=== PATIENT | female | born 1955 | race African-American/Black ===

== ENCOUNTER 2016-07-04 02:43 | Emergency (ER) | payer MEDICAID, OTHER ==
[~2016-07-04] VITALS: Ht 160 cm; Wt 63.5 kg
[~2016-07-04 02:43] MED LIST: ALBUTEROL2.5 MG/3 M HHN; AMOXICILLIN500 M1 PO; AMOXICILLIN500 MG ORAL; AMOXICILLIN500 MG PO; ASPIRIN81 MG ORAL; ATARAX25 MG ORAL; AUGMENTIN 875-1 EAC1 ORAL; BENADRYL25 M3 PO; BENADRYL25 MG PO; BENADRYL50 MG ORAL; BENADRYL50 MG PO; DIPHENHYDRAMINE25 M1 ORAL; HYDROCORTISONE28 G2 TP; HYDROCORTISONE28 G5 TP; KEFLEX500 MG ORAL; KEFLEX500 MG PO; NASONEX17 GM NASAL; OXYCONTIN10 MG PO; PERMETHRIN60 GM TOPIC; PHENERGAN/CODE120 ML PO; PREDNISONE50 MG ORAL; SEROQUEL25 MG PO; TYLENOL325 MG ORAL; [UNRECOGNIZED DRUG - REMARK]; [UNRECOGNIZED DRUG - REMARK]
[2016-07-04] MEDS ORDERED: UNOBMED (02:55)
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
[2016-07-04] MEDS ORDERED: ROBAXIN-750750 MG PO (04:03)
[2016-07-04] MEDS ORDERED: IBUPROFEN600 MG ORAL (04:03)
[2016-07-04 04:18] VITALS: BP 125/84
--- NOTE | 2016-07-11 14:57 | Diagnostic Imaging Report ---
Indications: Right elbow pain Technique: 3 views of the right although Findings: Comparison: None No fracture, dislocation, lytic destruction, periosteal reaction, joint space widening or effusion, surrounding soft tissue abnormality, or other acute changes demonstrated. No deformity, alignment abnormality, arthritic change, soft tissue calcification, or other chronic changes demonstrated. IMPRESSION: Negative elbow knee series.
[2016-09-11] MEDS ORDERED: IBUPROFEN600 MG ORAL (06:19)
[2016-09-11] MEDS ORDERED: NEXAFED30 MG ORAL (06:19)
== END 2016-07-04 04:20 | disposition home or self-care (01) ==
LOC: EMR 03:29
DX: S50.01XA Contusion of right elbow, initial encounter (principal); J45.909 Unspecified asthma, uncomplicated; V43.62XA Car passenger injured in collision with other type car in traffic accident, initial encounter; Y92.410 Unspecified street and highway as the place of occurrence of the external cause; Y99.8 Other external cause status
CPT/HCPCS: 99284

== ENCOUNTER → 2016-09-11 | Emergency (ER) | payer OTHER ==
[~2016-09-11] VITALS: Ht 162.6 cm; Wt 65.8 kg
[~2016-09-11] MED LIST changes: +DiphenhydrAMINE 50mg/ml Inj ONE; +IBUPROFEN600 MG ORAL; +Ketorolac 30mg Inj ONE; +Metoclopramide 10mg/2ml Inj ONE; +NEXAFED30 MG ORAL; +ROBAXIN-750750 MG PO; +UNOBMED
--- NOTE | 2016-09-11 06:19 | Emergency Room Report ---
History of Present Illness General Chief Complaint: Nausea, Vomiting, and Diarrhea Source: Patient Present Illness HPI This is a 60-year-old female who presents with chief complaint of headache, congestion, sore throat, ear pain. Onset for last 3 days. She has been here multiple time for the same complaint before. Denies any fever chills. She told the nurse that she had nausea and vomiting but she did not mention it to me here. She said she's been having diarrhea. Denies any other complaint. Allergies: Coded Allergies: No Known Allergies (Unverified , 04/04/12) Patient History Past Medical History: see triage record, old chart reviewed Past Surgical History: none Pertinent Family History: none Social History: Reports: smoking Now: No Immunizations: other Reviewed Nursing Documentation: PMH: Agreed, PSxH: Agreed Nursing Documentation-PMH Hx Cardiac Problems: Yes - HT MURMUR Hx Asthma: Yes Review of Systems Eye: Denies: blurred vision, eye pain ENT: Reports: ear pain, nose congestion, throat pain, Denies: throat swelling Respiratory: Reports: cough, Denies: shortness of breath Cardiovascular: Denies: chest pain, palpitations Gastrointestinal: Reports: diarrhea, nausea, vomiting, Denies: abdominal pain Musculoskeletal: Denies: back pain, joint pain Skin: Denies: rash Neurological: Denies: headache, numbness Endocrine: Denies: increased thirst, increased urine Hematologic/Lymphatic: Denies: easy bruising All Other Systems: negative except mentioned in HPI Physical Exam Vital Signs Date Time Temp Pulse Resp B/P Pulse Ox O2 Delivery O2 Flow Rate FiO2 09/11/16 05:55 97.9 90 16 113/80 96 Room Air vitals normal Sp02 EP Interpretation: reviewed, normal General Appearance: well appearing, no apparent distress, alert Head: normocephalic, atraumatic Eyes: bilateral eye EOMI, bilateral eye PERRL ENT: hearing grossly normal, normal pharynx Neck: full range of motion, supple, no meningismus Respiratory: chest non-tender, lungs clear, normal breath sounds Cardiovascular #1: regular rate, rhythm, no murmur Gastrointestinal: normal bowel sounds, non tender, no mass, no organomegaly, no bruit, non-distended Musculoskeletal: back normal, gait/station normal, normal range of motion Psychiatric: mood/affect normal Skin: warm/dry Medical Decision Making Diagnostic Impression: Primary Impression: Upper respiratory infection Qualified Codes: J06.9 - Acute upper respiratory infection, unspecified; B97.89 - Other viral agents as the cause of diseases classified elsewhere ER Course Patient presents with symptom consistent with a viral infection. I suspect there may be a malingering component to this. She is well appearing. No nausea no vomiting or diarrhea here. We'll discharge home with reassurance. Last Vital Signs Date Time Temp Pulse Resp B/P Pulse Ox O2 Delivery O2 Flow Rate FiO2 09/11/16 05:55 97.9 90 16 113/80 96 Room Air Status: improved Disposition: HOME, SELF-CARE Condition: Stable Scripts Pseudoephedrine Hcl* (NEXAFED*) 30 Mg Tablet 30 MG ORAL Q6H Y for congestion, #20 TAB Prov: YAS HENDRICKSON M.D. 09/11/16 Ibuprofen* (MOTRIN*) 600 Mg Tablet 600 MG ORAL THREE TIMES A DAY, #30 TAB 0 Refills Prov: YAS HENDRICKSON M.D. 09/11/16 Additional Instructions: Followup With your DrNicolás in 7 days. Return if symptom worsen. YAS HENDRICKSON M.D. Sep 11, 2016 06:19
[2016-09-11 06:32] VITALS: BP 117/84
== END | disposition home or self-care (01) ==
LOC: EMR 06:30
DX: J06.9 Acute upper respiratory infection, unspecified (principal); B97.89 Other viral agents as the cause of diseases classified elsewhere; J45.909 Unspecified asthma, uncomplicated; F17.200 Nicotine dependence, unspecified, uncomplicated; R01.1 Cardiac murmur, unspecified
CPT/HCPCS: 99284; J1200; J1885; J2765

== ENCOUNTER 2017-05-14 19:31 | Emergency (ER) | payer OTHER ==
[~2017-05-14] VITALS: Ht 160 cm; Wt 66.2 kg
[~2017-05-14 19:31] MED LIST changes: -DiphenhydrAMINE 50mg/ml Inj ONE; -Ketorolac 30mg Inj ONE; -Metoclopramide 10mg/2ml Inj ONE
[2017-05-14 19:35] VITALS: BP 118/68
[2017-05-14] MEDS ORDERED: NKM (19:40)
[2017-05-14] MEDS ORDERED: TESSALON PERLE100 MG ORAL (20:29)
[2017-05-14 20:49] VITALS: BP 118/68
--- NOTE | 2017-05-15 12:05 | Diagnostic Imaging Report ---
Indication: Cough Comparison: 12/24/15 A single view chest radiograph was obtained. Findings: No definite infiltrate or pulmonary vascular congestion identified. The heart is enlarged. The aorta is mildly enlarged consistent with atherosclerotic vascular disease. The bones are osteopenic. Impression: No acute disease
--- NOTE | 2017-05-16 22:40 | Emergency Room Report ---
History of Present Illness General Chief Complaint: Pain Source: Patient Present Illness HPI 61 yo F no sig pmhx p/w runny nose and congestion x 2 days. denies fever chest pain sob. no sick contacts or recent travel. has been eating/drinking well Allergies: Coded Allergies: No Known Allergies (Unverified , 04/04/12) Patient History Past Medical History: see triage record Past Surgical History: none Pertinent Family History: none Reviewed Nursing Documentation: PMH: Agreed, PSxH: Agreed Nursing Documentation-PMH Past Medical History: No History, Except For Hx Cardiac Problems: Yes - HT MURMUR Hx Asthma: Yes Review of Systems All Other Systems: negative except mentioned in HPI Physical Exam Vital Signs Date Time Temp Pulse Resp B/P (MAP) Pulse Ox O2 Delivery O2 Flow Rate FiO2 05/14/17 19:34 98.8 99 18 118/68 97 Room Air Sp02 EP Interpretation: reviewed, normal General Appearance: normal inspection, well appearing, no apparent distress, alert, GCS 15, non-toxic Head: normocephalic, atraumatic Eyes: bilateral eye normal inspection, bilateral eye PERRL, bilateral eye EOMI ENT: normal ENT inspection, normal pharynx, normal voice, moist mucus membranes Neck: normal inspection, full range of motion, supple Respiratory: normal inspection, lungs clear, normal breath sounds, no respiratory distress, no retraction, no wheezing, speaking full sentences, chest symmetrical Cardiovascular #1: normal inspection, regular rate, rhythm, no edema, normal capillary refill Cardiovascular #2: 2+ radial (R), 2+ radial (L) Gastrointestinal: normal inspection, non tender, soft, non-distended, no guarding Musculoskeletal: normal inspection, back normal, normal range of motion, non- tender Neurologic: normal inspection, alert, oriented x3, responsive, motor strength/ tone normal, sensory intact, normal gait, speech normal Psychiatric: normal inspection, judgement/insight normal, memory normal Skin: normal inspection, normal color, no rash, warm/dry, well hydrated, normal turgor Medical Decision Making Diagnostic Impression: Primary Impression: Viral URI with cough ER Course 61 yo F with runny nose, congestion DDX: likely viral URI appears well, lung exam negative ER course stable in ED Dispo: Patient DCed to home with pmd follow up strict return prec discussed such as high fever, chils, cp, sob, nvd, inability to tolerate po Last Vital Signs Date Time Temp Pulse Resp B/P (MAP) Pulse Ox O2 Delivery O2 Flow Rate FiO2 05/14/17 20:49 98.8 99 18 118/68 97 Room Air Disposition: HOME, SELF-CARE Condition: Stable Scripts Benzonatate* (TESSALON PERLE*) 100 Mg Capsule 100 MG ORAL THREE TIMES A DAY for 7 Days, #21 PERLE 0 Refills Prov: Willem Gordon M.D. 05/14/17 Referrals: [facility]ERR[facility] (PCP) Patient Instructions: Upper Respiratory Infection, Adult, [id number] Willem Gordon M.D. May 16, 2017 22:40
== END 2017-05-14 20:50 | disposition home or self-care (01) ==
LOC: EMR 19:49
DX: J06.9 Acute upper respiratory infection, unspecified (principal); B34.9 Viral infection, unspecified; J45.909 Unspecified asthma, uncomplicated
CPT/HCPCS: 71010; 99283

== ENCOUNTER 2018-03-29 11:48 | Emergency (ER) | payer OTHER ==
[~2018-03-29] VITALS: Ht 162.6 cm; Wt 54.4 kg
[~2018-03-29 11:48] MED LIST changes: +NKM; +TESSALON PERLE100 MG ORAL
[2018-03-29 12:13] VITALS: BP 113/74
[2018-03-29] MEDS ORDERED: Tetanus/Diptheria/Pertussis Vaccine 0.5ml Syr IM ONE (12:45)
--- NOTE | 2018-03-29 12:47 | Emergency Room Report ---
History of Present Illness General Chief Complaint: General Complaint Source: Patient Present Illness HPI 62-year-old female presents to the emergency department complaining of 4 out of 10 in severity pain to puncture wound on the bottom of the right foot since yesterday. Patient reports that she was walking and stepped on a nail which punctured her through her shoe. Patient denies history of diabetes or immunocompromise. Patient states she does not know when her last tetanus vaccination as she denies nausea, vomiting, fevers, chills or erythema. Patient denies bleeding at this time. Patient is also complaining of exacerbation of chronic left knee pain and states she would like that evaluated as well. No new trauma or fall. Patient reports several years ago a table fell on her knee but she was unable to completely proper follow-up after being placed in a knee immobilizer for some time. She reports some paresthesias about the puncture wound of the right foot. Allergies: Coded Allergies: No Known Allergies (Unverified , 04/04/12) Patient History Past Medical History: see triage record Past Surgical History: none Pertinent Family History: none Social History: Reports: smoking Reviewed Nursing Documentation: PMH: Agreed; PSxH: Agreed Nursing Documentation-PMH Past Medical History: No History, Except For Hx Cardiac Problems: Yes - HT MURMUR Hx Asthma: Yes Review of Systems All Other Systems: negative except mentioned in HPI Physical Exam Vital Signs Date Time Temp Pulse Resp B/P (MAP) Pulse Ox O2 Delivery O2 Flow Rate FiO2 03/29/18 12:10 98.8 88 16 113/74 94 Room Air 98.8 Sp02 EP Interpretation: reviewed, normal General Appearance: no apparent distress, alert, GCS 15, non-toxic Head: normocephalic, atraumatic ENT: hearing grossly normal, normal voice Neck: full range of motion Respiratory: lungs clear, normal breath sounds, speaking full sentences Cardiovascular #1: regular rate, rhythm, no edema Musculoskeletal: back normal, gait/station normal - mildly compensatory, normal range of motion, tender - mild anterior ttp to the left knee, no swelling , clicking, laxity or obvious deformity, no erythema or warmth. no TTP to the plantar aspect of right foot about puncture wound, no erythema, no purulent d/c or warmth, puncture wound noted. Neurologic: alert, oriented x3, responsive, motor strength/tone normal, sensory intact, speech normal, grossly normal Psychiatric: judgement/insight normal Skin: normal color, no rash, warm/dry, well hydrated, other - no erythema or warmth. no TTP to the plantar aspect of right foot about puncture wound, no erythema, no purulent d/c or warmth, puncture wound noted. Medical Decision Making BRIANNA Roach is my supervising Physician whom patient management has been discussed with. Diagnostic Impression: Primary Impression: Puncture wound Additional Impression: Knee pain, left Qualified Codes: M25.562 - Pain in left knee ER Course 62-year-old female presents to the emergency department complaining of 4 out of 10 in severity pain to puncture wound on the bottom of the right foot since yesterday. Patient reports that she was walking and stepped on a nail which punctured her through her shoe. Patient denies history of diabetes or immunocompromise. Patient states she does not know when her last tetanus vaccination as she denies nausea, vomiting, fevers, chills or erythema. Patient denies bleeding at this time. Patient is also complaining of exacerbation of chronic left knee pain and states she would like that evaluated as well. No new trauma or fall. Patient reports several years ago a table fell on her knee but she was unable to completely proper follow-up after being placed in a knee immobilizer for some time. She reports some paresthesias about the puncture wound of the right foot. Ddx considered but are not limited to Fracture, dislocation, contusion, Sprain/ Strain/Spasm. Vital signs: are WNL, pt. is afebrile H&PE are most consistent with musculoskeletal injury will perform imaging to r/ o fractures/dislocations. ORDERS: - X-ray Right foot 3 views, and left knee 3 - negative for fx, Dislocation, or significant soft tissue injury, per preliminary read in ED, and signed by BRIANNA Rae, my supervising physician has reviewed, and agrees with my interpretation. ED INTERVENTIONS: - Tdap. - -Patient is provided with cane and instructed on its use by aerial survey technician. DISCHARGE: At this time pt. is stable for d/c to home. Will provide printed patient care instructions, and any necessary prescriptions. Care plan and follow up instructions have been discussed with the patient prior to discharge. Other X-Ray Diagnostic Results Other X-Ray Diagnostic Results #1: X-Ray ordered: knee left # of Views/Limited Vs Complete: 3 View Indication: Pain EP Interpretation: Yes BRIANNA Xray: Interpretation reviewed, by supervising MD, and agrees with findings. Interpretation: no dislocation, no soft tissue swelling, no fractures Impression: No acute disease Electronically Signed by: Suma Rae PA-C Other X-Ray Diagnostic Results #2: X-Ray ordered: right foot # of Views/Limited Vs Complete: 3 View Indication: Pain EP Interpretation: Yes BRIANNA Xray: Interpretation reviewed, by supervising MD, and agrees with findings. Interpretation: no dislocation, no soft tissue swelling, no fractures, other - no radiopaque fb noted. Impression: No acute disease Electronically Signed by: Suma Rae PA-C Last Vital Signs Date Time Temp Pulse Resp B/P (MAP) Pulse Ox O2 Delivery O2 Flow Rate FiO2 03/29/18 12:13 98.8 88 16 113/74 94 Room Air 98.8 Disposition: HOME, SELF-CARE Condition: Stable Scripts Ibuprofen* (MOTRIN*) 600 Mg Tablet 600 MG ORAL THREE TIMES A DAY, #20 TAB 0 Refills Prov: Suma Rae 03/29/18 Bacitracin/Polymyxin B Sulfate (BACITRACIN-POLYMYXIN OINTMENT) 28.35 Gm Oint...g. 1 APPLIC TP BID, #28.3 GM Prov: Suma Rae 03/29/18 Cephalexin* (KEFLEX*) 500 Mg Capsule 500 MG ORAL EVERY 12 HOURS for 7 Days, #14 CAP 0 Refills Prov: Suma Rae 03/29/18 Referrals: [facility],REFERR[facility] (PCP) Patient Instructions: Knee Pain, [id number], Puncture Wound, [id number] Additional Instructions: Take medications as directed. Follow up with a Primary Care Provider in 3-5 days, even if your symptoms have resolved. --Please review list of primary care clinics, if you do not already have a primary care provider Return sooner to ED if new symptoms occur, or current symptoms become worse. - Please note that this Emergency Department Report was dictated using BRAIN technology software, occasionally this can lead to erroneous entry secondary to interpretation by the dictation equipment. Suma Rae Mar 29, 2018 12:47
[2018-03-29] MEDS ORDERED: TYLENOL EXTRA500 MG ORAL (13:50)
[2018-03-29] MEDS ORDERED: CEPHALEXIN500 MG ORAL (13:50)
[2018-03-29] MEDS ORDERED: BACITRACIN-P28.35 GM TP (13:50)
[2018-03-29] MEDS ORDERED: IBUPROFEN600 MG ORAL (13:58)
[2018-03-29] MEDS ORDERED: Ketorolac 30mg Inj IM ONE (14:00)
[2018-03-29 14:09] VITALS: BP 120/78
--- NOTE | 2018-03-29 17:04 | Diagnostic Imaging Report ---
Indications: Reason For Exam: PAIN Technique: Three views of the left knee Comparison: None Findings: No acute fractures. No dislocations. Joint spaces are preserved. No radiopaque foreign body. Normal mineralization. Impression: No acute process
--- NOTE | 2018-03-29 17:23 | Diagnostic Imaging Report ---
Indication: Foot pain Technique: 3 views right foot Comparison: none Findings: There is chronic appearing erosive abnormality of the fourth distal phalanx. No acute fractures. No dislocations. There is mild hallux valgus and metatarsus adductus. There is a small calcaneal spur. 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
== END 2018-03-29 14:05 | disposition home or self-care (01) ==
LOC: EMR 12:27
DX: S91.341A Puncture wound with foreign body, right foot, initial encounter (principal); W45.0XXA Nail entering through skin, initial encounter; M25.562 Pain in left knee; Z23 Encounter for immunization; Y92.9 Unspecified place or not applicable; Y99.9 Unspecified external cause status
CPT/HCPCS: 73562; 73630; 90471; 90715; 96372; 99284; J1885

== ENCOUNTER 2019-09-11 07:48 | Emergency (ER) | payer OTHER ==
[~2019-09-11] VITALS: Ht 160 cm; Wt 61.2 kg
[~2019-09-11 07:48] MED LIST changes: +BACITRACIN-P28.35 GM TP; +CEPHALEXIN500 MG ORAL; +TYLENOL EXTRA500 MG ORAL
[2019-09-11 07:53] VITALS: BP 117/75
[2019-09-11] MEDS ORDERED: ALBUTEROL SULF8.5 GM INH (07:58)
[2019-09-11] MEDS ORDERED: PREDNISONE50 MG ORAL (07:58)
--- NOTE | 2019-09-11 07:58 | Emergency Room Report ---
History of Present Illness General Chief Complaint: Flu Like Symptoms Source: Patient Present Illness HPI 63-year-old female history of smoking history of homelessness presents with cough, congestion times a 7 days no known aggravating relieving factors no fevers no chills no chest pain or shortness of breath, patient states she wanted to get checked out patient presents for evaluation COVID-19 risk:Contact w/high r: No COVID-19 risk:Travel to affect: No Has patient experienced luna: Yes Coronavirus symptoms experienc: Cough, Flu-Like Symptoms Allergies: Coded Allergies: No Known Allergies (Unverified , 04/04/12) Patient History Past Medical History: see triage record Social History: Reports: smoking, drug use - Cocaine Now: No Reviewed Nursing Documentation: PMH: Agreed; PSxH: Agreed Nursing Documentation-PMH Past Medical History: No History, Except For Hx Cardiac Problems: Yes - HT MURMUR Hx Asthma: Yes Hx Diabetes: Yes - prediabete Review of Systems All Other Systems: negative except mentioned in HPI Physical Exam Vital Signs Date Time Temp Pulse Resp B/P (MAP) Pulse Ox O2 Delivery O2 Flow Rate FiO2 09/11/19 07:49 98.8 100 18 117/75 (89) 96 Room Air Sp02 EP Interpretation: reviewed, normal General Appearance: well appearing, no apparent distress, alert Head: normocephalic, atraumatic Eyes: bilateral eye PERRL, bilateral eye EOMI ENT: uvula midline, moist mucus membranes, nasal congestion Neck: supple, thyroid normal, supple/symm/no masses Respiratory: lungs clear, no respiratory distress, no retraction, no accessory muscle use Cardiovascular #1: normal peripheral pulses, regular rate, rhythm, no edema, no gallop, no murmur Gastrointestinal: non tender, soft, no guarding, no rebound Musculoskeletal: normal inspection Neurologic: alert, oriented x3 Psychiatric: mood/affect normal Skin: no rash, warm/dry Medical Decision Making Diagnostic Impression: Primary Impression: Viral URI with cough ER Course 63-year-old female history of smoking presents with cough, congestion most likely a viral URI superimposed on chronic lung disease We will provide patient with steroid and albuterol MDI spacer Disposition home with return precautions Chest X-Ray Diagnostic Results Chest X-Ray Diagnostic Results : Chest X-Ray Ordered: Yes # of Views/Limited/Complete: 1 View Indication: Other - Cough EP Interpretation: Yes Interpretation: no consolidation, no effusion, no pneumothorax, no acute cardiopulmonary disease Impression: No acute disease Electronically Signed by: Reginaldo Heaton MD Last Vital Signs Date Time Temp Pulse Resp B/P (MAP) Pulse Ox O2 Delivery O2 Flow Rate FiO2 09/11/19 07:53 100 18 Room Air 09/11/19 07:53 98.8 117/75 96 Disposition: HOME, SELF-CARE Condition: Stable Scripts Prednisone* (PREDNISONE*) 50 Mg Tablet 50 MG ORAL DAILY, #4 TAB 0 Refills Prov: Reginaldo Heaton MD 09/11/19 Albuterol Sulfate* (ALBUTEROL SULFATE MDI*) 8.5 Gm Hfa.aer.ad 2 PUFF INH Q4H PRN for Shortness of Breath, #1 EA 0 Refills Prov: Reginaldo Heaton MD 09/11/19 Referrals: [facility]. [facility] Patient Instructions: Upper Respiratory Infection, Adult, [id number] Additional Instructions: The patient was provided with discharge instructions, notified to follow-up with a primary care doctor and or specialist in the next 24-48 hours, and to return to the ED if they have worsening of their symptoms. Please note that this report is being documented using eSnips technology. This can lead to erroneous entry secondary to incorrect interpretation by the dictating instrument. Reginaldo Haeton MD Sep 11, 2019 07:58
[2019-09-11] MEDS ORDERED: Albuterol 90mcg Inhaler 8gm INH ONE (08:00)
[2019-09-11 08:29] VITALS: BP 122/78
--- NOTE | 2019-09-11 12:03 | Diagnostic Imaging Report ---
Indication: Dyspnea Comparison: 05/14/2017 A single view chest radiograph was obtained. Findings: No definite infiltrate or pulmonary vascular congestion identified. The heart is borderline enlarged. The aorta is mildly enlarged consistent with atherosclerotic vascular disease. The bones are osteopenic. There are thoracic vertebral enthesophytes at multiple levels. Impression: No acute disease
== END 2019-09-11 08:30 | disposition home or self-care (01) ==
LOC: EMR 07:55
DX: J06.9 Acute upper respiratory infection, unspecified (principal); R05 Cough; J45.909 Unspecified asthma, uncomplicated; R73.03 Prediabetes; R01.1 Cardiac murmur, unspecified
CPT/HCPCS: 71045; 94640; J7512; Z7502; 99284